=== PATIENT | male | born 1955 | race Caucasian/White ===

== ENCOUNTER 2018-03-04 11:10 | Outpatient (CLI) | payer OTHER | END 2018-03-04 11:11 | disposition home or self-care (01) | LOC: BICRAD 11:10 | PROVIDERS: ATTEND Physician Assistant | DX: J44.9 Chronic obstructive pulmonary disease, unspecified; I70.90 Unspecified atherosclerosis; R05 Cough | CPT/HCPCS: 71046 ==

== ENCOUNTER 2018-08-27 10:55 | Emergency (ER) | payer OTHER ==
--- NOTE | 2018-08-27 12:25 | CT ---
CT BRAIN WITHOUT CONTRAST: History: Injury. Fell at work and hit head. No loss of conscious. Patient is on Coumadin. FINDINGS: No evidence of infarct, hemorrhage, midline shift, or abnormal extraaxial fluid collections are seen. The ventricular size is normal the basilar cistern is patent. The bony calvarium is intact. Visualiz ed paranasal sinuses and mastoid air cells are well aerated. IMPRESSION: No CT evidence of acute intracranial process. POS: [facility]
== END 2018-08-27 13:26 | disposition home or self-care (01) ==
LOC: ERS 10:55
DX: S00.01XA Abrasion of scalp, initial encounter (principal); Z71.6 Tobacco abuse counseling; F17.210 Nicotine dependence, cigarettes, uncomplicated; Z79.01 Long term (current) use of anticoagulants; W18.30XA Fall on same level, unspecified, initial encounter
CPT/HCPCS: 70450; 99406

== ENCOUNTER 2019-01-11 21:04 | Observation (INO) | payer OTHER ==
--- NOTE | 2019-01-11 21:36 | RAD ---
PORTABLE CHEST ONE VIEW: 01/11/19 at 9:25 p.m. HISTORY: Shortness of breath. FINDINGS: Comparison is made with exam of 03/04/18. Changes of median sternotomy are again seen. The heart size is normal. the aorta is tortuous. The lorena gs are well expanded without focal areas of consolidation, pneumothoraces or pleural effusions. IMPRESSION: No radiographic evidence of acute cardiopulmonary process. POS: [facility]
[2019-01-11 21:51] LABS: #Eosinphils 0.1 thou/uL (0.0-0.7); #Lymphocytes 1.8 thou/uL (1.20-3.40); #Monocytes 0.6 thou/uL (0.11-0.59); #Neutrophils 8.6 thou/uL (1.40-6.50); %Basophils 0.4 % (0.0-1.0); %Eosinophils 0.5 % (0.0-10.0); %Lymphocytes 16.2 % (21.0-51.0); %Monocytes 5.7 % (0.0-10.0); %Neutrophils 77.3 % (42.0-75.0); Hemoglobin 16.5 g/dL (14.0-18.0); Mean Corpuscular HGB CONC 32.7 g/dL (32.0-36.0); Mean Corpuscular Hemoglobin 31.2 pg (27.0-31.0); Mean Corpuscular Volume 95.4 fL (78.0-98.0); Platelet Count 403 thou/uL (130-400); RBC Distribution Width 12.1 % (11.5-14.5); Red Blood Cell (RBC) Count 5.29 mill/uL (4.70-6.10); White Blood Cell (WBC) Count 11.2 thou/uL (4.8-10.8)
[2019-01-11 22:12] LABS: ALT (SGPT) 20 U/L (8-55); AST (SGOT) 16 U/L (5-34); Alkaline Phosphatase 90 U/L (40-150); Anion Gap 19 mmol/L (10-20); BUN (Urea Nitrogen) 13 mg/dL (8.4-25.7); Bilirubin, Total 0.4 mg/dL (0.2-1.2); Calc. Creatinine Clearance 0 mL/min (70-130); Calcium 9.8 mg/dL (7.8-10.44); Carbon Dioxide 23 mmol/L (23-31); Chloride 101 mmol/L (98-107); Estimated GFR-MDRD 67; Globulin 3.7 g/dL (2.4-3.5); Glucose 245 mg/dL (80-115); Protein, Total 7.7 g/dL (5.8-8.1); Sodium 139 mmol/L (136-145)
[2019-01-11] MEDS ORDERED: predniSONE 20 MG TAB ONE (22:58)
[2019-01-11] MEDS ORDERED: cefTRIAXone\\ROCEPHIN 2 GM VIAL ONE (23:45)
[2019-01-11] MEDS ORDERED: Albuterol Sulfate 2.5 mg/3 ml Neb ONE (23:45)
[2019-01-11 23:53] LABS: INR-International Normal Ratio 3.2; Prothrombin Time 32.6 SEC (12.0-14.7)
[2019-01-11 23:54] LABS: PTT 57.3 SEC (22.9-36.1)
[2019-01-12 01:16] LABS: CKMB 1.5 ng/mL (0-6.6)
[2019-01-12] MEDS ORDERED: Acetaminophen 325 MG TAB PO PRN (01:25)
[2019-01-12 01:33] VITALS: BMI 27.9
[2019-01-12 05:14] LABS: CKMB 2.1 ng/mL (0-6.6)
[2019-01-12] MEDS ORDERED: guaiFENesin ER 600 MG TAB PO SCH (09:00)
[2019-01-12] MEDS ORDERED: predniSONE 20 MG TAB PO SCH (09:00)
[2019-01-12 12:17] LABS: Hemoglobin A1c 8.6 % (4.0-6.0)
[2019-01-12 12:47] VITALS: BP 128/47; TEMP 98.1
--- NOTE | 2019-01-12 13:18 | RAD ---
RADIOGRAPH OF CHEST FRONTAL VIEW: Date: 01/12/19 COMPARISON: Previous day. INDICATION: Dyspnea. FINDINGS: There is patchy left basilar density and linear opacification. Right lung is grossly clear. Cardiac s ilhouette is accentuated by portable technique. Evidence of prior sternotomy with vascular calcificat ion. There are osseous degenerative changes. IMPRESSION: Mild left basilar density could reflect atelectasis or scar. Otherwise, no acute process of the chest is visualized. POS: [facility]
--- NOTE | 2019-01-12 16:07 | SS ---
DATE OF ADMISSION: 01/11/2019 DATE OF DISCHARGE: 01/12/2019 PRIMARY CARE PHYSICIAN: Rafi Llamas MD ADMISSION DIAGNOSIS: Chronic obstructive pulmonary disease exacerbation. DISCHARGE DIAGNOSIS: COPD improved, tobacco abuse, new onset type 2 diabetes CHIEF COMPLAINT: Cough and shortness of breath. HISTORY OF PRESENT ILLNESS: This is a 63-year-old long-time smoker with a history of COPD in the past, who presented to the emergency department after worsening cough and shortness of breath. The patient states he has had several days to a week of on and off cough. He has an inhaler that Dr. Llamas had given him in the past, but night of admission, his cough became worsen. He also had not been using his CPAP for his sleep apnea for quite some time. The night of admission, he became more short of breath, felt like he was getting dizzy and almost about to pass out. He called EMS, they came for evaluation and his pulse ox was in the 80s. He was placed on BiPAP initially by EMS. He had significant improvement after neb treatments as well as the BiPAP in the emergency department. He is able to be weaned off the BiPAP and was just getting neb treatments, oxygen. He was started on steroid therapy as well as antibiotics in the emergency department and admitted for further evaluation. The next morning, he was feeling back to his baseline. He was able to be weaned off oxygen therapy. He still had some occasional cough and tightness , but it improved with the neb treatments as well as inhalers. He never had fevers. Denied any chest pains. He did rule out for an WI with negative cardiac enzymes in the emergency department and was stable for discharge on the day of discharge. DISCHARGE PHYSICAL EXAMINATION: VITAL SIGNS: Temperature 98.1, pulse of 58, respirations 20, blood pressure 128/47, pulse ox 93% to 94% on room air. GENERAL: He is awake and alert, in no acute distress. Speech is clear. NECK: Supple. HEART: Regular rate and rhythm. LUNGS: Decreased breath sounds. Scattered rhonchi. ABDOMEN: Soft. EXTREMITIES: There is no edema. NEUROLOGIC: Cranial nerves 2 through 12 are intact. Sensation is intact bilaterally. LABORATORY DATA: Sodium 139, potassium 4.0, chloride 101, CO2 of 23, BUN and creatinine 13 and 1.1, serum glucose was elevated at 245 with a hemoglobin A1c of 8.6. Troponin I's were 0.01, 0.03, 0.03. Liver enzymes were normal. BNP of 22. White blood cell count 11.2, hemoglobin and hematocrit 16.5 and 50.4, platelets of 403. Chest x-ray last night showed no active disease. This morning, his repeat chest x-ray revealed atelectasis versus scar, otherwise no acute process seen. DISCHARGE MEDICATIONS: Include: 1. Mucinex 600 mg q.12. 2. Levaquin 500 mg daily for 7 days. 3. Protonix 40 mg daily. 4. Prednisone taper. 5. Coumadin 5 mg daily. 6. Albuterol inhaler p.r.n. cough and shortness of breath. FOLLOWUP INSTRUCTIONS: The patient to follow up with Dr. Llamas this week for his COPD exacerbation as well as his elevated blood sugar and new onset diabetes. Job ID: [id number] MTDD
[2019-01-13] MEDS ORDERED: Warfarin Sodium 5 MG TAB PO SCH (17:00)
[2019-01-15] MEDS ORDERED: predniSONE 20 MG TAB PO SCH (09:00)
[2019-01-18] MEDS ORDERED: predniSONE 20 MG TAB PO SCH (09:00)
[2019-01-21] MEDS ORDERED: predniSONE 20 MG TAB PO SCH (09:00)
== END 2019-01-12 15:03 | disposition home or self-care (01) ==
LOC: ERS 21:04 → T4-B 23:22
PROVIDERS: ADMIT Family Medicine; ATTEND Family Medicine
DX: J44.1 Chronic obstructive pulmonary disease with (acute) exacerbation (principal); Z88.2 Allergy status to sulfonamides; Z79.2 Long term (current) use of antibiotics; Z79.01 Long term (current) use of anticoagulants; Z79.52 Long term (current) use of systemic steroids; Z79.899 Other long term (current) drug therapy
CPT/HCPCS: 36415; 71045; 80053; 82553; 83036; 83880; 84484; 85025; 85379; 85610; 85730; 87040; 87804; 93005; 94640; 94760; 96365; G0378; J0696; J7611; J7620

== ENCOUNTER 2019-05-17 17:14 | Emergency (ER) | payer OTHER ==
[2019-05-17] MEDS ORDERED: Lidocaine 1% w/Epinephrine 1:100K 20 ML VIAL ONE (17:24)
== END 2019-05-17 18:11 | disposition home or self-care (01) ==
LOC: ERS 17:14
DX: S01.91XA Laceration without foreign body of unspecified part of head, initial encounter (principal); J45.909 Unspecified asthma, uncomplicated; W22.8XXA Striking against or struck by other objects, initial encounter; Z87.891 Personal history of nicotine dependence; Z79.01 Long term (current) use of anticoagulants; Z79.84 Long term (current) use of oral hypoglycemic drugs
CPT/HCPCS: 12001; J2001

== ENCOUNTER 2019-05-21 18:40 | Emergency (ER) | payer OTHER | END 2019-05-21 19:51 | disposition home or self-care (01) | LOC: ERS 18:40 | DX: L76.22 Postprocedural hemorrhage of skin and subcutaneous tissue following other procedure (principal); Z87.891 Personal history of nicotine dependence | CPT/HCPCS: 99282 ==

== ENCOUNTER 2019-05-22 17:05 | Emergency (ER) | payer OTHER ==
[2019-05-22] MEDS ORDERED: Lidocaine 1% w/Epinephrine 1:100K 20 ML VIAL ONE (18:00)
[2019-05-22] MEDS ORDERED: Silver Nitrate Application 1 EACH ONE (18:02)
[2019-05-22] MEDS ORDERED: Tranexamic Acid 1,000 MG/10 ML VIAL ONE (18:04)
== END 2019-05-22 18:29 | disposition home or self-care (01) ==
LOC: ERS 17:05
DX: Z48.89 Encounter for other specified surgical aftercare (principal); J45.909 Unspecified asthma, uncomplicated; Z87.891 Personal history of nicotine dependence; Z79.01 Long term (current) use of anticoagulants; Z79.84 Long term (current) use of oral hypoglycemic drugs
CPT/HCPCS: 99282; J2001

== ENCOUNTER 2023-07-30 09:18 | Emergency (ER) | payer MEDICARE, OTHER ==
[2023-07-30] MEDS ORDERED: Cyclobenzaprine 10 MG TAB ONE (09:49)
[2023-07-30] MEDS ORDERED: predniSONE 20 MG TAB ONE ×2 (09:49→09:50)
== END 2023-07-30 10:58 | disposition home or self-care (01) ==
LOC: ERS 09:18
DX: M54.16 Radiculopathy, lumbar region (principal); Z87.891 Personal history of nicotine dependence; Z79.899 Other long term (current) drug therapy; Z79.01 Long term (current) use of anticoagulants
CPT/HCPCS: 72100; J7512

== ENCOUNTER 2023-08-09 03:36 | Emergency (ER) | payer MEDICARE, OTHER ==
[2023-08-09 04:46] LABS: Bacteria/HPF None Seen HPF (None Seen); Bilirubin Negative (Negative); Blood, Urine Negative (Negative); CAUTI Indications for Culture Pelvic or flank pain; Clarity Clear (Clear); Glucose, Urine (Dipstick) Normal (Negative); Ketone, Urine Negative (Negative); Leukocyte Negative Leu/uL (Negative); Nitrite Negative (Negative); Protein, Urine (Dipstick) Negative (Neg-Trace); RBC/HPF 0-3 HPF (0-3); Specific Gravity, Urine 1.018 (1.002-1.036); Squamous Epithelial None Seen HPF (0-3); Urobilinogen Normal mg/dL (Less than 2); WBC/HPF 0-3 HPF (0-3); pH, Urine 5.5 (5.0-9.0)
[2023-08-09 04:48] LABS: Urine Culture Reflex No No
[2023-08-09 05:36] LABS: #Basophils 0.1 thou/uL (0.0-0.2); #Eosinphils 0.3 thou/uL (0.0-0.7); #Neutrophils 7.2 thou/uL (1.40-6.50); %Basophils 0.7 % (0.0-1.0); %Eosinophils 2.4 % (0.0-10.0); %Lymphocytes 17.4 % (21.0-51.0); %Neutrophils 69.1 % (42.0-75.0); Hematocrit 44.4 % (42.0-52.0); Hemoglobin 14.7 g/dL (14.0-18.0); Mean Corpuscular HGB CONC 33.1 g/dL (32.0-36.0); Mean Corpuscular Hemoglobin 29.9 pg (27.0-31.0); Mean Corpuscular Volume 90.2 fl (78.0-98.0); Mean Platelet Volume 9.9 fL (7.4-10.4); Platelet Count 286 10x3/uL (130-400); RBC Distribution Width 13.3 % (11.5-14.5); Red Blood Cell (RBC) Count 4.92 mill/uL (4.70-6.10); White Blood Cell (WBC) Count 10.4 10x3/uL (4.8-10.8)
[2023-08-09 05:49] LABS: INR-International Normal Ratio 2.3; Prothrombin Time 26.7 sec (12.0-14.7)
[2023-08-09 05:50] LABS: PTT 50.9 sec (22.9-36.1)
[2023-08-09 06:05] LABS: ALT (SGPT) 58 U/L (8-55); AST (SGOT) 38 U/L (5-34); Albumin 4.5 g/dL (3.4-4.8); Alkaline Phosphatase 60 U/L (40-110); Anion Gap 12 mmol/L (10-20); BUN (Urea Nitrogen) 19 mg/dL (8.4-25.7); Bilirubin, Total 0.6 mg/dL (0.2-1.2); Calc. Creatinine Clearance 0 mL/min (70-130); Calcium 10.3 mg/dL (7.8-10.44); Carbon Dioxide 27 mmol/L (23-31); Chloride 100 mmol/L (98-107); Estimated GFR 94; Globulin 3.6 g/dL (2.4-3.5); Glucose 150 mg/dL (80-115); Potassium 4.4 mmol/L (3.5-5.1); Protein, Total 8.1 g/dL (5.8-8.1); Sodium 135 mmol/L (136-145)
[2023-08-09] MEDS ORDERED: Ketorolac Tromethamine 30 MG/ML VIAL ONE (06:08)
[2023-08-09] MEDS ORDERED: HYDROcodone/Acetaminophen 5/325 mg Tablet ONE (06:59)
[2023-08-09] MEDS ORDERED: Iopamidol-370 76% 500 ML MDV (1 ML CHARGE) ONE (14:48)
[2023-08-09] MEDS ORDERED: Magnevist 469MG/ML 20 ML VIAL ONE (15:17)
== END 2023-08-09 10:10 | disposition home or self-care (01) ==
LOC: ERS 03:36
DX: M54.50 Low back pain, unspecified (principal); Z87.891 Personal history of nicotine dependence
CPT/HCPCS: 72158; 74177; 80053; 81001; 85025; 85610; 85730; 86140; 96374; A9579; J1885; Q9967

== ENCOUNTER 2023-11-08 17:00 | Outpatient (CLI) | payer MEDICARE, OTHER | END 2023-11-08 17:01 | disposition home or self-care (01) | LOC: SLEEPLAB 17:00 | PROVIDERS: ATTEND Family Medicine | DX: G47.33 Obstructive sleep apnea (adult) (pediatric) (principal); G47.10 Hypersomnia, unspecified; G47.00 Insomnia, unspecified; E11.9 Type 2 diabetes mellitus without complications; I10 Essential (primary) hypertension; R53.83 Other fatigue; R06.83 Snoring; R35.1 Nocturia; E66.9 Obesity, unspecified; Z68.30 Body mass index [BMI] 30.0-30.9, adult | CPT/HCPCS: 95800 ==

== ENCOUNTER 2024-12-23 09:38 | Outpatient (CLI) | payer MEDICARE | END 2024-12-23 09:39 | disposition home or self-care (01) | LOC: BICRAD 09:38 | PROVIDERS: ATTEND Nurse Practitioner Family | DX: M25.512 Pain in left shoulder (principal); M19.012 Primary osteoarthritis, left shoulder; M25.812 Other specified joint disorders, left shoulder ==

== ENCOUNTER 2024-12-24 11:17 | Outpatient (CLI) | payer MEDICARE | END 2024-12-24 11:18 | disposition home or self-care (01) | LOC: BICMRI 11:17 | PROVIDERS: ATTEND Nurse Practitioner Family | DX: M25.512 Pain in left shoulder (principal); M75.122 Complete rotator cuff tear or rupture of left shoulder, not specified as traumatic; M19.012 Primary osteoarthritis, left shoulder ==